=== PATIENT | female | born 1945 | race Caucasian/White ===

== ENCOUNTER 2020-12-26 15:01 | Emergency (ER) | payer MEDICARE, BC ==
[2020-12-26] MEDS ORDERED: traMADol 50 MG Tab PO STA (15:14)
[2020-12-26] MEDS ORDERED: Acetaminophen 500 MG Tab PO STA (15:14)
[2020-12-26] MEDS ORDERED: Lidocaine 2% Viscous Solution 15 ML Cup TOP ONE (15:24)
--- NOTE | 2020-12-26 15:24 | EDM.PDOC ---
ED HPI GENERAL MEDICAL PROBLEM - General Chief Complaint: General Stated Complaint: FALL Time Seen by Provider: 12/26/20 15:15 Source of Information: Reports: Patient History Limitations: Reports: No Limitations - History of Present Illness INITIAL COMMENTS - FREE TEXT/NARRATIVE: Patient presented to the ED because a facial and rt hand injury. [place]pped [place] the [place]. She has abrasions on her face and c/o rt hand/wrist pain. There is no LOC after the fall. No headache,nausea or vomiting. She was ambulatory after the fall and has a GCS of 15 upon her arrival at the ED. Right Hand Pain Score (Numeric/FACES): 7 - Related Data Allergies Allergy/AdvReac Type Severity Reaction Status Date / Time amlodipine Allergy Other Verified 12/26/20 15:46 cefoxitin Allergy Other Verified 12/26/20 15:46 doxycycline Allergy Other Verified 12/26/20 15:46 lisinopril Allergy Headache Verified 12/26/20 15:46 moxifloxacin Allergy Other Verified 12/26/20 15:46 Sulfa (Sulfonamide Allergy Hives Verified 12/26/20 15:38 Antibiotics) Home Meds: Home Meds Cetirizine [ZyrTEC] 10 mg BEDTIME 12/26/20 [History] Cholecalciferol (Vitamin D3) [Vitamin D3] 10 mcg DAILY 12/26/20 [History] Famotidine 20 mg BEDTIME 12/26/20 [History] Hyoscyamine Sulfate [Levbid] 0.375 mg DAILY 12/26/20 [History] Irbesartan 300 mg DAILY 12/26/20 [History] Lansoprazole [Prevacid] 30 mg DAILY 12/26/20 [History] Levothyroxine [Synthroid] 50 mcg DAILY 12/26/20 [History] Metoprolol Succinate [Toprol Xl] 50 mg BID 12/26/20 [History] Rosuvastatin [Crestor] 10 mg DAILY 12/26/20 [History] Warfarin [Coumadin] 5 mg .BOWER..SUN.SUN.SAT 12/26/20 [History] Zinc 50 mg DAILY 12/26/20 [History] calcium polycarbophiL [Fibercon] 1,250 mg DAILY 12/26/20 [History] hydroCHLOROthiazide [Hydrochlorothiazide] 12.5 mg DAILY 12/26/20 [History] traMADol [Ultram] 100 mg PO Q8H PRN #15 tab 12/26/20 [Rx] ED ROS GENERAL - Review of Systems Review Of Systems: See Below Constitutional: Reports: No Symptoms HEENT: Reports: No Symptoms Respiratory: Reports: No Symptoms Cardiovascular: Reports: No Symptoms Endocrine: Reports: No Symptoms GI/Abdominal: Reports: No Symptoms : Reports: No Symptoms Musculoskeletal: Reports: Other (Rt hand/wrist pain) Skin: Reports: Bruising Neurological: Reports: No Symptoms Psychiatric: Reports: No Symptoms ED EXAM, GENERAL - Physical Exam Exam: See Below Exam Limited By: No Limitations General Appearance: Alert, No Apparent Distress Eye Exam: Bilateral Eye: PERRL Ears: Normal External Exam, Normal Canal, Hearing Grossly Normal Nose: Normal Inspection, Normal Mucosa, No Blood Throat/Mouth: Normal Inspection, Normal Lips, Normal Teeth, Normal Gums, Normal Oropharynx, Normal Voice Head: Atraumatic, Normocephalic Neck: Normal Inspection, Supple, Non-Tender Respiratory/Chest: No Respiratory Distress, Lungs Clear, Normal Breath Sounds, No Accessory Muscle Use, Chest Non-Tender Cardiovascular: Normal Peripheral Pulses, Regular Rate, Rhythm, No Edema, No Gallop, No JVD, No Murmur, No Rub GI/Abdominal: Normal Bowel Sounds, Soft, Non-Tender, No Organomegaly, No Distention, No Abnormal Bruit Back Exam: Normal Inspection, Full Range of Motion Extremities: Normal Inspection, Normal Range of Motion, Non-Tender, No Pedal Edema, Normal Capillary Refill Neurological: Alert, Oriented, CN II-XII Intact, Normal Cognition, Normal Gait, Normal Reflexes, No Motor/Sensory Deficits Psychiatric: Normal Affect Skin Exam: Warm, Other (abrasion RT upper lip and bruising RT cheek) Course - Vital Signs Text/Narrative:: Chief Safety Officer/Facial CT result was reviewed and discussed with patient Tramadol 100 mg PO x1 Tylenol 1000 mg PO x1 Last Recorded V/S: Last Vital Signs Temp 36.5 C 12/26/20 15:12 Pulse 70 12/26/20 15:12 Resp 18 12/26/20 15:12 BP 168/83 H 12/26/20 15:12 Pulse Ox 97 12/26/20 15:12 - Orders/Labs/Meds Orders: Active Orders 24 hr Category Date Time Status Hand Comp Min 3V Rt [CR] Stat Exams 12/26/20 15:25 Taken Head wo Cont [CT] Stat Exams 12/26/20 15:25 Taken Max Facial Sinus wo Cont [CT] Stat Exams 12/26/20 15:25 Taken Labs: Laboratory Tests 12/26/20 12/26/20 12/26/20 Range/Units 15:29 15:29 15:29 WBC 5.2 (3.0-10.3) x10-3/uL RBC 4.60 (3.60-5.20) x10(6)uL Hgb 14.0 (11.4-15.5) g/dL Hct 41.2 (34.2-48.2) % MCV 89.7 (76.7-100.5) fL MCH 30.5 (23.9-33.9) pg MCHC 34.0 (31.9-34.8) g/dL RDW 13.6 (12.3-16.5) % Plt Count 287 (151-488) x10(3)uL MPV 6.6 L (7.1-12.4) fL Neut % (Auto) 52.3 (30.8-76.2) % Lymph % (Auto) 27.4 (18.4-52.1) % [place] % (Auto) 10.7 (4.4-15.7) % Eos % (Auto) 8.3 H (0.6-8.1) % Baso % (Auto) 1.3 (0.2-1.5) % Neut # (Auto) 2.7 (1.5-6.3) x10-3/uL Lymph # (Auto) 1.4 (1.0-4.4) x10-3/uL [place] # (Auto) 0.6 (0.3-1.0) x10-3/uL Eos # (Auto) 0.4 (0.0-0.8) x10-3/uL Baso # (Auto) 0.1 (0.0-0.1) x10-3/uL PT 26.9 H (9.0-11.1) sec INR 2.65 H (1.00-1.24) APTT 33.5 H (24.4-33.2) SECONDS Sodium 138 (135-145) mmol/L Potassium 3.7 (3.5-5.3) mmol/L Chloride 101 (100-110) mmol/L Carbon Dioxide 25 (21-32) mmol/L BUN 20 H (7-18) mg/dL Creatinine 0.7 (0.55-1.02) mg/dL Est Cr Clr Drug Dosing 66.49 mL/min Estimated GFR (MDRD) > 60 (>60) BUN/Creatinine Ratio 28.6 H (9-20) Glucose 101 (80-116) mg/dL Calcium 8.6 (8.6-10.2) mg/dL Total Bilirubin 0.6 (0.1-1.3) mg/dL AST 27 H (5-25) IU/L ALT 33 (12-36) U/L Alkaline Phosphatase 55 L (56-112) IU/L Total Protein 6.4 (6.0-8.0) g/dL Albumin 3.6 (3.2-4.6) g/dL Globulin 2.8 g/dL Albumin/Globulin Ratio 1.3 Meds: Medications Discontinued Medications Generic Name Dose Route Start Last Admin Trade Name Freq PRN Reason Stop Dose Admin Acetaminophen 1,000 mg 12/26/20 15:14 12/26/20 15:18 Acetaminophen 500 Mg Tab PO 12/26/20 15:15 1,000 mg NOW STA Administration Lidocaine HCl 15 ml 12/26/20 15:24 12/26/20 15:27 Lidocaine 2% Viscous Solution 15 Ml Cup TOP 12/26/20 15:25 15 ml ONETIME ONE Administration Tramadol HCl 100 mg 12/26/20 15:14 12/26/20 15:46 Tramadol 50 Mg Tab PO 12/26/20 15:15 50 mg NOW STA Administration Departure - Departure Time of Disposition: 17:30 Disposition: Home, Self-Care 01 Condition: Good Clinical Impression: Facial injury, Fall - Discharge Information Prescriptions: traMADol [Ultram] 100 mg PO Q8H PRN #15 tab PRN Reason: Pain Referrals: PCP,Not In Area [Primary Care Provider] - Forms: ED Department Discharge Additional Instructions: Please read discharge instructions on facial injury and fall Take tramadol 50 mg, 2 tablets and tylenol 1000 mg every 8 hours as needed for pain Follow up as needed Sepsis Event Note (ED) - Focused Exam Vital Signs: Vital Signs Temp Pulse Resp BP Pulse Ox 10/03/21 15:12 36.5 C 70 18 168/83 H 97 - My Orders Last 24 Hours: My Active Orders 12/26/20 15:25 Hand Comp Min 3V Rt [CR] Stat Head wo Cont [CT] Stat Max Facial Sinus wo Cont [CT] Stat - Assessment/Plan Last 24 Hours: My Active Orders 12/26/20 15:25 Hand Comp Min 3V Rt [CR] Stat Head wo Cont [CT] Stat Max Facial Sinus wo Cont [CT] Stat
== END 2020-12-26 17:46 | disposition home or self-care (01) ==
LOC: FB.ED 15:01
DX: S00.83XA Contusion of other part of head, initial encounter (principal); S00.511A Abrasion of lip, initial encounter; Z88.1 Allergy status to other antibiotic agents; Z88.2 Allergy status to sulfonamides; Z88.8 Allergy status to other drugs, medicaments and biological substances; Z79.899 Other long term (current) drug therapy; W01.0XXA Fall on same level from slipping, tripping and stumbling without subsequent striking against object, initial encounter
CPT/HCPCS: 36415; 70450; 70486; 73130; 80053; 85025; 85610; 85730; 99284; A9270